=== PATIENT | female | born 1970 | race Caucasian/White ===

== ENCOUNTER 2017-06-04 01:43 | Emergency (ER) | payer BC, OTHER ==
--- NOTE | 2017-06-04 02:35 | EDM.PDOC ---
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 Patient was walking in her house and tripped over her small dog hitting her head on the edge of a coffee table. Patient denies any loss of consciousness and other than some bleeding from the top of her head has not had any symptoms she denies any nausea vomiting dizziness or any other unusual symptoms. She is unclear of her tetanus status. Patient has not had any dizziness no ringing or buzzing in her ears no change in vision she is ambulating without difficulty. Frontal Head Pain Score (Numeric/FACES): 5 - Related Data Allergies Allergy/AdvReac Type Severity Reaction Status Date / Time No Known Allergies Allergy Verified 06/04/17 01:57 Home Meds: Home Meds Ascorbic Acid [Vitamin C] 500 mg PO DAILY 04/26/14 [History] Cholecalciferol (Vitamin D3) [Vitamin D3] 2,000 units PO DAILY 04/26/14 [History ] Multivitamin [Multi-Vitamin Daily] 1 tab PO DAILY 04/26/14 [History] Escitalopram [Lexapro] 10 mg PO DAILY 06/04/17 [History] Social & Family History - Tobacco Use Smoking Status *Q: Never Smoker Second Hand Smoke Exposure: No - Alcohol Use Days Per Week of Alcohol Use: 0 Number of Drinks Per Day: 0 Total Drinks Per Week: 0 - Recreational Drug Use Recreational Drug Use: No Drug Use in Last 12 Months: No ED ROS GENERAL - Review of Systems Review Of Systems: See Below Constitutional: Reports: No Symptoms HEENT: Reports: No Symptoms Respiratory: Reports: No Symptoms Cardiovascular: Reports: No Symptoms GI/Abdominal: Reports: No Symptoms : Reports: No Symptoms Musculoskeletal: Reports: No Symptoms Neurological: Reports: No Symptoms ED EXAM, HEAD INJURY - Physical Exam Exam: See Below Exam Limited By: No Limitations General Appearance: Alert, No Apparent Distress, Other (She has a large laceration on her midanterior scalp) Head: Scalp Lacerations. No: Barnett's Sign Nexus Criteria: No: Posterior, Midline Cervical Tenderness, Evidence of Intoxication, Altered Level of Consciousness, Focal Neurological Deficit, Painful Distraction Injuries Eyes: Bilateral Eye: EOMI, PERRL Ears: Normal External Exam, Normal Canal, Hearing Grossly Normal, Normal TMs Nose: Normal Inspection, Normal Mucousa, No Blood Throat/Mouth: Normal Inspection, Normal Lips, Normal Teeth, Normal Gums, Normal Oropharynx, Normal Voice, No Airway Compromise Neck: Non-Tender, Full Range of Motion, Normal Alignment, Normal Inspection. No : Limited Range of Motion, Painful Range of Motion, Spinous Processes Tender, Stiff Neck Respiratory: No Respiratory Distress, Lungs Clear, Normal Breath Sounds Cardiovascular: Regular Rate, Rhythm, No Edema, No Murmur GI/Abdominal Exam: Normal Bowel Sounds, Soft, Non-Tender, Pelvis Stable Back Exam: Normal Inspection, Full Range of Motion. 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 As Tested, No Motor/Sensory Deficits, Normal Mood/ Affect, Oriented x 3, Other (All muscle groups the upper extremities recall appropriate bilaterally deep to reflexes the brachial radialis are equal and appropriate bilaterally) - Western Coma Score Best Eye Response ([place]): (4) Open Spontaneously Best Verbal Response (Western): (5) Oriented Best Motor Response (Western): (6) Obeys Commands ED LACERATION/WOUND & SHELLEY PROC - Laceration/Wound Repair Head Lac/wound length in cm: 14 Local Anesthesia - Lidocaine (Xylocaine): 1% Plain Local Anesthetic Volume: Other (15) Skin Prep: Saline Saline irrigation (cc's): 150 Exploration/Debridement/Repair: Wound Explored, In a Bloodless Field, Explored to Base Closed with: [place] # of Sutures: 22 Tetanus Status Addressed: Yes (Patient uncertain of her tetanus this was updated ) Complications: No Progress/Comments: Patient had a curvilinear 14 cm laceration on the anterior frontal scalp anterior most just posterior to the hairline. The wound was anesthetized with 10 mL 1% lidocaine without epinephrine using careful technique we attempted to staple this with good wound approximation towards the end of the repair some more lidocaine was used on the inferior most portion of the laceration patient tolerated the procedure without difficulty. Course - Vital Signs Last Recorded V/S: Last Vital Signs Temp 35.9 C 06/04/17 01:52 Pulse 70 06/04/17 01:52 Resp 16 06/04/17 01:52 BP 132/88 06/04/17 01:52 Pulse Ox 97 06/04/17 01:52 - Orders/Labs/Meds Orders: Active Orders 24 hr Category Date Time Status Vaccines to be Administered [RC] PER UNIT ROUTINE Care 06/04/17 02:42 Active Head wo Cont [CT] Stat Exams 06/04/17 02:28 Taken Meds: Medications Discontinued Medications Generic Name Dose Route Start Last Admin Trade Name Fide PRN Reason Stop Dose Admin Acetaminophen 650 mg 06/04/17 04:45 06/04/17 04:54 Tylenol PO 06/04/17 04:46 650 mg ONETIME ONE Administration Diphtheria/Tetanus/Acell Pertussis 0.5 ml 06/04/17 02:40 06/04/17 03:59 Adacel IM 06/04/17 02:41 0.5 ml .ONCE ONE Administration Lidocaine HCl 20 ml 06/04/17 02:40 06/04/17 04:54 Xylocaine 1% INJECT 06/04/17 02:41 20 ml ONETIME ONE Administration Lidocaine HCl Confirm 06/04/17 03:45 Xylocaine 1% Administered 06/04/17 03:46 Dose 50 ml .ROUTE .STK-MED ONE - Re-Assessments/Exams Free Text/Narrative Re-Assessment/Exam: 06/04/17 05:[address] negative Departure - Departure Time of Disposition: 05:42 Disposition: Home, Self-Care 01 Clinical Impression: Head injury, Scalp laceration - Discharge Information Instructions: Head Injury, Adult, Laceration Care, Adult Referrals: PCP,None [Primary Care Provider] - Forms: ED Department Discharge Additional Instructions: Return to the emergency room with any questions problems worsening symptoms. Close observation for the next 24 hours to ensure normal behavior. Sleep as much as you feel like you need to. However for the next 12 hours be awoken every 2 hours to ensure normal behavior and activity. Keep your scalp clean and dry for the next 24 hours after 24 hours he can let water gently run over the area then gently dab dry. Staple removal in 12 days. He can follow-up at the Hospital clinic for removal of these. [phone] - My Orders Last 24 Hours: My Active Orders 06/04/17 02:28 Head wo Cont [CT] Stat 06/04/17 02:42 Vaccines to be Administered [RC] PER UNIT ROUTINE - Assessment/Plan Last 24 Hours: My Active Orders 06/04/17 02:28 Head wo Cont [CT] Stat 06/04/17 02:42 Vaccines to be Administered [RC] PER UNIT ROUTINE
[2017-06-04] MEDS ORDERED: Lidocaine 1% 20 ML MDV INJECT ONE (02:40)
[2017-06-04] MEDS ORDERED: Diphtheria,Pertussis(Acell),Tetanus Vaccine 0.5 ML SDV IM ONE (02:40)
[2017-06-04] MEDS ORDERED: Lidocaine 1% 50 ML MDV ONE (03:45)
[2017-06-04] MEDS ORDERED: Acetaminophen 325 MG Tab PO ONE (04:45)
--- NOTE | 2017-06-07 16:02 | CT ---
Head CT Technique: Multiple axial sections through the brain were obtained. Intravenous contrast was not utilized. Comparison: No previous intracranial imaging. Findings: Ventricles along with basal cisterns and sulci over the convexities are within normal limits for the patient's age. No abnormal parenchymal densities are seen. No evidence of intracranial hemorrhage. No midline shift or mass effect is seen. Bone window settings were reviewed which show the visualized sinuses do appear clear. No acute calvarial abnormality is identified. Soft tissue injury is seen within the right anterior scalp. Impression: 1. Scalp injury. 2. No acute intracranial abnormality is identified. Diagnostic code #2 I agree with preliminary report issued by [facility] ([facility] report finalized on 06/04/17, 4:26 AM Central Time)
== END 2017-06-04 05:53 | disposition home or self-care (01) ==
LOC: JD.ED 01:43
DX: S01.01XA Laceration without foreign body of scalp, initial encounter (principal); S09.90XA Unspecified injury of head, initial encounter; W01.0XXA Fall on same level from slipping, tripping and stumbling without subsequent striking against object, initial encounter; Y92.009 Unspecified place in unspecified non-institutional (private) residence as the place of occurrence of the external cause; Z79.899 Other long term (current) drug therapy
CPT/HCPCS: 12005; 70450; 90471; 90715; 99284; A9270; 99282-25